=== PATIENT | female | born 1970 | race Hispanic/Latino ===

== ENCOUNTER → 2024-02-16 | Outpatient (REF) | payer MEDICARE ==
[~2024-02-16] MED LIST: CYMBALTA60 MG PO; ELIMITE TOP; GLIPIZIDE10 MG PO; HYDROXYZINE HCL25 MG PO; LOTREL 10-40 M1 EACH PO; METFORMIN HCL1000 MG PO; PREVACID30 MG; STARLIX120 MG PO; VICTOZA 2-0.6 MG/0.1
== END ==
LOC: RAD 14:15
PROVIDERS: ATTEND Family Medicine
DX: M79.89 Other specified soft tissue disorders (principal)
CPT/HCPCS: 93971